=== PATIENT | male | born 2000 | race Caucasian/White ===

== ENCOUNTER 2023-07-02 09:47 | Emergency (ER) | payer OTHER ==
[~2023-07-02] VITALS: Ht 175.3 cm; Wt 109.6 kg
[2023-07-02] MEDS: LIDOCAINE 5% (LIDODERM) PATCH TD ONE (10:31)
[2023-07-02] MEDS: IBUPROFEN 600MG TAB PO ONE (10:31)
[2023-07-02] MEDS ORDERED: IBUP-1022 PO (11:10)
[2023-07-02] MEDS ORDERED: LIDO5DIS41 TOP (11:10)
[2023-07-02 11:22] VITALS: BP 139/67; TEMP 98.6; O2SAT 98
== END 2023-07-02 11:32 | disposition home or self-care (01) ==
LOC: M ED 09:47
DX: M51.27 Other intervertebral disc displacement, lumbosacral region (principal)

== ENCOUNTER 2024-05-03 17:29 | Emergency (ER) | payer OTHER ==
[~2024-05-03] VITALS: Ht 175.3 cm; Wt 105.8 kg
[~2024-05-03 17:29] MED LIST: IBUP-1022 PO; LIDO5DIS41 TOP
[2024-05-03 17:31] VITALS: TEMP 98.3
[2024-05-03] MEDS: KETOROLAC 60MG 2ML VIAL IM ONE (21:15)
[2024-05-03] MEDS ORDERED: LIDO5DIS41 TOP (21:19)
[2024-05-03] MEDS ORDERED: NAPR1TAB86 PO (21:19)
[2024-05-03] MEDS ORDERED: METH-1164 PO (21:19)
[2024-05-03 21:24] VITALS: BP 167/106; O2SAT 99
== END 2024-05-03 21:28 | disposition home or self-care (01) ==
LOC: M ED 17:29
DX: S39.012A Strain of muscle, fascia and tendon of lower back, initial encounter (principal); S13.4XXA Sprain of ligaments of cervical spine, initial encounter; V49.40XA Driver injured in collision with unspecified motor vehicles in traffic accident, initial encounter; Z79.899 Other long term (current) drug therapy; Z79.1 Long term (current) use of non-steroidal anti-inflammatories (NSAID); Y92.410 Unspecified street and highway as the place of occurrence of the external cause; Y93.89 Activity, other specified; Y99.9 Unspecified external cause status
CPT/HCPCS: 70450; 72125; 96372; 99283; J1885